=== PATIENT | male | born 1955 | race African-American/Black ===

== ENCOUNTER 2018-12-25 10:06 | Emergency (ER) | payer MEDICARE, MEDICAID ==
--- OUTSIDE RECORDS SUMMARY | 2018-12-25 10:15 | XMS REPORT | Continuity of Care Document ---
:1955 External Reference #:[id number] Author Name Yarelis Wesley Care Team Providers Name Role Phone Gerardo Tran III, MD Primary Care Physician Unavailable Payers Type Date Identification Numbers Payment Provider Subscriber Policy Number: [id number] Medicare Mansoor Lynch Julio César PayID: [id number] [address] [place] [address] Policy Number: [id number] Medicaid Mansoor Angela Group Name: 1 1 [address] PayID: [id number] [place] [address] Advance Directives Description No Information Available Problems Date Description Provider Status Onset: 12/13/2011 Essential hypertension Gerardo Tran M.D. Active Onset: 12/13/2011 Depressive disorder Gerardo Tran M.D. Active Onset: 12/13/2011 Benign localized hyperplasia of Gerardo Tran M.D. Active prostate Onset: 12/13/2011 Coronary arteriosclerosis Gerardo Tran M.D. Active Onset: 12/13/2011 Sleep apnea Gerardo Tran M.D. Active Onset: 01/09/2012 Pure hypercholesterolemia Gerardo Tran M.D. Active Onset: 06/08/2015 Osteoarthritis of knee Ivette Roca M.D. Active Onset: 06/08/2015 Current tear of medial cartilage Ivette Roca M.D. Active AND/OR meniscus of knee Onset: 08/30/2017 Localized, primary osteoarthritis Ivette Roca M.D. Active Onset: 08/30/2017 Localized, primary osteoarthritis of Ivette Roca M.D. Active the shoulder region Onset: 08/30/2017 Disorder of shoulder Ivette Roca M.D. Active Family History Date Family Member(s) Problem(s) Comments Father due to Alzheimer's () - he wandered off, Disease fell, broke his hip, amd from ? complications a few days after surgery. age 79. Mother due to Alzheimer's () - age 92 Disease First Sister due to Alcohol () - in her 50s Related Social History Type Date Description Comments Sex Unknown Marital Status Lives With Occupation Currently Working Works Part-time Smokeless Tobacco Never Used Smokeless Tobacco ETOH Use Occasionally consumes Couple times a week alcohol ETOH Use Using Cocaine couple times a week over past month as of 01/2017 Tobacco Use Start: Unknown Patient is a current max 3/4-1ppd. Began smoker, smokes every day age 16 Smoking Status Reviewed: 12/04/18 Patient is a current max 3/4-1ppd. Began smoker, smokes every day age 16 Exercise Exercises sporadically walks daily to get Type/Frequency around Allergies, Adverse Reactions, Alerts Description No Known Drug Allergies Medications Medication Date Status Form Strength Qnty SIG Indications Ordering Provider Accu-Check Shannan 12/04 Active Misc 50uni pt. to Gerardo Walsh Chem Strips ts test blood [place], sugar 3 M.D. times weekly or as directed Accu-Chek 12/04 Active Misc 50uni use with Gerardo Walsh Softclix Lancets ts blood [place], glucose M.D. testing Amlodipine 10/10 Active Tablets 5mg 90tab 1 by mouth I10 Gerardo Walsh Besylate s every day Ava Tran Voltaren 10/25 Active Gel 1% 400gm apply 2 M17.0 Ivette grams to jeremy Roca M.D. area twice daily as needed Cpap Mask And 01/20 Active Device cpap G47.30 Gerardo Walsh Supplies supplies - sebastian Tran M.D. cushion, tubing, filters, machine recheck for sleep apnea dx 780.57 Pravastatin 01/09 Active Tablets 40mg 90tab 1 tablet Sunil Sodium /2011 s daily at [place] [facility], bedtime Ava,FACP Tamsulosin HCL Active Capsules 0.4mg 90cap 1 po qd Unknown s Cpap Active qhs Unknown Fluticasone Active Suspension 50mcg/Act 48uni Place 1 Gerardo E. ts [facility] [place], Each M.D. Nostril Once Daily as Needed Aspirin Adult Low Active Chewtabs 81mg 30uni 1 po qd Unknown Strength ts Dextran/Hypromell Active 0.3% 2 gtts Unknown ose both eyes Sodium Chloride Active 0.65% nasal Unknown spray Lisinopril-Hydroc Active Tablets 20-12.5mg 1 by mouth Unknown hlorothiazide every day Carboxymethylcell Active 0.5% 1 gtt qid Unknown ulose Na both eyes Pantoprazole Active Tablets DR 1 by mouth Unknown Sodium every day Hemorrhoidal-HC Active Ointment once daily Naproxen Active Tablets 500mg 1 by mouth Unknown twice a day as needed pain Colon Cleanser 02/13 Hx as directed - 03/29 Cholecalciferol 02/13 Hx 1000Unit daily - 03/29 Carboxymethylcell 02/13 Hx 0.5% instill 1 Unknown ulose drop both - eyes four 03/29 times day Nicotine 02/13 Hx Patches 7mg/24HR 1 patch a 24HR day and - wear it 03/29 for 14 hours Naproxen 02/03 Hx Tablets 500mg 30tab 1 tablet M25.521 Ivette s with food Abelino, - by mouth M.D. 11/27 twice a day Nicotine 12/29 Hx Patches 7mg/24HR 1 patch Gerardo E. Transdermal 24HR transderma [place], System Step 3 - l 24 hours M.D. 02/10 Milk Of Magnesia 12/29 Hx Suspension 3000m 30 Gerardo E. l milliliter [place], - s oral M.D. 10/09 other day as needed for constipati on. Vitamin D-3 12/29 Hx Capsules 1000Unit 90cap 1 by mouth Gerardo E. /2016 s every day Ana Tran M.D. 10/09 Naprosyn 06/08 Hx Tablets 500mg 40tab take 1 s tablet Abelino, - twice a M.D. 12/28 day for weeks Tramadol HCL 06/08 Hx Tablets 50mg 80tab 1 tablet s by mouth Abelino, - every 6 M.D. 12/29 hours needed pain Voltaren 03/12 Hx Gel 1% 100gm apply 2 grams Abelino, - directly M.D. 12/28 to painful area(s) up to 4 times daily Percocet 04/30 Hx Tablets 5-325mg 60tab 1-2 by s mouth Abelino, - every 4 to M.D. 01/20 6 hours needed pain Colace 04/30 Hx Capsules 100mg 60cap 1 by mouth s twice a Abelino, - day prn M.D. 12/28 Paroxetine HCL 10/07 Hx Tablets 40mg 1/2 po qd Hayley Ana Tran M.D. 12/29 Paroxetine HCL Hx Tablets 20mg 90tab 1 po qd Gerardo E s Ana Tran M.D. 10/07 Lisinopril Hx Tablets 20mg 30tab 1 po qd Unknown / s - 10/07 Ibuprofen Hx Tablets 600mg 90tab three Ivette s times a Abelino, - day as M.D. 06/08 Erythromycin Hx Gel 2% 120gm apply thin Unknown film twice - daily 01/[address] 81mg 30tab 1 po qd Unknown Coated Adult Low /0000 s Strength - 11/04 Vitamin D Hx Capsules 1000Unit 30cap po qd Unknown /0000 s - 02/10 Androgel Pump Hx Gel (1.62%) 1Bott 2 Unknown /0000 le actuations - qam 11/04 Lisinopril/Hydroc Hx Tablets 20-12.5mg 1 po qd Unknown hlorothiazide /0000 - 12/29 Co Q10 00 Hx Capsules 100mg 1 po qd Unknown /0000 - 01/20 Centrum Ultra Hx Tablets 1 po qd Unknown Mens / - 01/20 Trazodone HCL 00 Hx Tablets 50mg 1 /2 Unknown /0000 tablet at - bedtime as 03/29 Amoxicillin Hx Capsules 500mg Take One Unknown / Capsule - Every 8 Menthol/M-Salycyl Hx muscle Unknown ate / pain - 11/27 Ibuprofen Hx Tablets 600mg 1 by mouth Unknown /0000 twice - times a 11/27 day needed Hydroxyzine Hx Capsules 25mg 1 in the Unknown Pamoate / morning - and 2 at 11/27 night for anxiety Bupropion HCL ER Hx Tablets ER take 1 Unknown (SR) /0000 12HR tablet by - mouth 11/27 morning Bisacodyl Ec Hx Tablets DR 5mg 1 by mouth Unknown /0000 every day - as needed 08/13 Biotene Hx Solution 2 sprays Unknown Moisturizing /0000 tid Mouth Hope - 11/27 Lisinopril Hx Tablets 20mg 1 by mouth Unknown /0000 every day - 03/29 Paroxetine HCL Hx Tablets 40mg 1 by mouth Unknown /0000 every day - 03/29 Medications Administered in Office Medication Date Status Form Strength Qnty SIG Indications Ordering Provider Celestone 3 mg Administered Injection Ivette and 3mg 018 Ava Roca Depomedrol Administered Injection Ivette 40MG 017 Ava Roca Depomedrol Administered Injection Ivette 40MG Laron Roca M.D. Depomedrol Administered Injection Ivette 40MG 017 Ava Roca Depomedrol Administered Injection Ivette 40MG 017 Ava Roca Celestone 3 mg Administered Injection Ivette and 3mg 017 Ava Roca Depomedrol Administered Injection Ivette 80MG 015 Ava Roca Depomedrol Administered Injection Ivette 80MG 015 Ava Roca Influenza Administered Injection Unknown Virus Vaccine 015 Depomedrol Administered Injection Ivette 80MG 014 Ava Roca Immunizations CPT Code Status Date Vaccine Reaction Lot # [id number] Given 10/10/2018 Influenza Virus Vaccine, No immediate reaction [id number] Quadrivalent, Split, noted. Preservative Free 30125 Given 09/13/2016 Influ Virus Vaccine, Quadrivalent, Split Virus, [place] [address] Given 12/15/2014 Zoster (Zostavax) 22477 Given 11/13/2013 Pneumonia Vaccine 36693 Given 10/07/2013 Flu Vaccine Split Virus [id number] Preservative Free For Indiv 3Yr Older 26887 Given 12/13/2011 Tdap - [id number] Tetanus/Diptheria/Acellular Pertussis Vital Signs Date Vital Result Comment 12/04/2018 9:10am Height 68.5 inches 5'8.50" Weight 256.00 lb Heart Rate 82 /min BP Systolic 133 mmHg home device/right arm BP Diastolic 80 mmHg home device/right arm BP Systolic Sitting 130 mmHg manual/right arm BP Diastolic Sitting 80 mmHg manual/right arm O2 % BldC Oximetry 95 % BMI (Body Mass Index) 38.4 kg/m2 10/10/2018 9:44am Height 68.5 inches 5'8.50" Weight 257.00 lb Heart Rate 66 /min BP Systolic Sitting 140 mmHg BP Diastolic Sitting 88 mmHg O2 % BldC Oximetry 96 % BMI (Body Mass Index) 38.5 kg/m2 03/07/2018 9:25am Height 68 inches 5'8" Weight 250.00 lb BP Systolic 146 mmHg BP Diastolic 86 mmHg Body Temperature 97.8 F BMI (Body Mass Index) 38.0 kg/m2 11/28/2017 1:09pm Weight 244.00 lb Heart Rate 79 /min BP Systolic Sitting 132 mmHg BP Diastolic Sitting 95 mmHg Body Temperature 97.6 F O2 % BldC Oximetry 97 % 10/25/2017 8:49am Height 68 inches 5'8" Weight 255.00 lb BP Systolic 144 mmHg BP Diastolic 90 mmHg Body Temperature 97.6 F BMI (Body Mass Index) 38.8 kg/m2 08/30/2017 11:46am Height 68 inches 5'8" Weight 256.00 lb Heart Rate 72 /min BP Systolic 130 mmHg BP Diastolic 76 mmHg Respiratory Rate 20 /min Body Temperature 96.8 F Pain Level 5 BMI (Body Mass Index) 38.9 kg/m2 05/12/2017 9:12am Height 68 inches 5'8" Weight 258.00 lb Heart Rate 80 /min BP Systolic Sitting 132 mmHg BP Diastolic Sitting 84 mmHg Respiratory Rate 30 /min O2 % BldC Oximetry 97 % room air BMI (Body Mass Index) 39.2 kg/m2 03/30/2017 8:54am Height 68 inches 5'8" Weight 262.00 lb Heart Rate 76 /min BP Systolic Sitting 128 mmHg BP Diastolic Sitting 86 mmHg Respiratory Rate 16 /min O2 % BldC Oximetry 95 % BMI (Body Mass Index) 39.8 kg/m2 03/17/2017 8:54am Height 68 inches 5'8" Weight 266.00 lb Heart Rate 69 /min BP Systolic 148 mmHg BP Diastolic 91 mmHg Body Temperature 97.4 F Pain Level 0 BMI (Body Mass Index) 40.4 kg/m2 02/14/2017 9:02am Height 68 inches 5'8" Weight 259.00 lb Heart Rate 72 /min BP Systolic Sitting 146 mmHg BP Diastolic Sitting 84 mmHg Respiratory Rate 14 /min O2 % BldC Oximetry 97 % BMI (Body Mass Index) 39.4 kg/m2 Neck Circumference in inches 18 02/10/2017 10:38am Height 68.5 inches 5'8.50" Weight 260.00 lb Heart Rate 86 /min BP Systolic Sitting 142 mmHg BP Diastolic Sitting 84 mmHg Respiratory Rate 15 /min Body Temperature 98.0 F O2 % BldC Oximetry 98 % BMI (Body Mass Index) 39.0 kg/m2 02/03/2017 10:15am Height 68.5 inches 5'8.50" Weight 238.00 lb Heart Rate 71 /min BP Systolic 136 mmHg BP Diastolic 78 mmHg Respiratory Rate 16 /min Body Temperature 97.1 F BMI (Body Mass Index) 35.7 kg/m2 12/29/2016 11:23am Height 68.5 inches 5'8.50" Weight 258.38 lb Heart Rate 90 /min BP Systolic 130 mmHg BP Diastolic 82 mmHg Body Temperature 97.9 F O2 % BldC Oximetry 96 % BMI (Body Mass Index) 38.7 kg/m2 06/08/2015 10:18am Height 68.5 inches 5'8.50" Weight 256.00 lb Heart Rate 71 /min BP Systolic 151 mmHg BP Diastolic 84 mmHg Pain Level 2 BMI (Body Mass Index) 38.4 kg/m2 03/12/2015 11:53am Height 68.5 inches 5'8.50" Weight 256.00 lb Heart Rate 78 /min BP Systolic 136 mmHg BP Diastolic 82 mmHg Pain Level 2 BMI (Body Mass Index) 38.4 kg/m2 02/12/2015 2:17pm Height 68.5 inches 5'8.50" Weight 256.00 lb Pain Level 2 BMI (Body Mass Index) 38.4 kg/m2 01/29/2015 2:33pm Height 68.5 inches 5'8.50" Weight 256.00 lb Pain Level 6 BMI (Body Mass Index) 38.4 kg/m2 01/20/2015 2:09pm Height 68.5 inches 5'8.50" Weight 256.50 lb Heart Rate 71 /min BP Systolic Sitting 130 mmHg BP Diastolic Sitting 82 mmHg O2 % BldC Oximetry 95 % BMI (Body Mass Index) 38.4 kg/m2 05/19/2014 9:48am Height 68 inches 5'8" Weight 257.00 lb Heart Rate 75 /min BP Systolic 143 mmHg BP Diastolic 91 mmHg Body Temperature 98.2 F BMI (Body Mass Index) 39.1 kg/m2 04/30/2014 1:57pm Height 68 inches 5'8" Weight 257.00 lb Heart Rate 98 /min BP Systolic 106 mmHg BP Diastolic 75 mmHg BMI (Body Mass Index) 39.1 kg/m2 04/08/2014 2:17pm Height 68.5 inches 5'8.50" Weight 253.75 lb Heart Rate 78 /min BP Systolic Sitting 124 mmHg BP Diastolic Sitting 76 mmHg Body Temperature 98.1 F BMI (Body Mass Index) 38.0 kg/m2 03/21/2014 8:56am Height 68 inches 5'8" Weight 250.00 lb Heart Rate 76 /min BP Systolic 143 mmHg BP Diastolic 92 mmHg BMI (Body Mass Index) 38.0 kg/m2 01/10/2014 10:14am Weight 256.00 lb Heart Rate 86 /min BP Systolic Sitting 128 mmHg BP Diastolic Sitting 85 mmHg Body Temperature 98.1 F O2 % BldC Oximetry 97 % 11/04/2013 11:46am Height 68.25 inches 5'8.25" Weight 254.75 lb Heart Rate 96 /min BP Systolic Sitting 120 mmHg BP Diastolic Sitting 68 mmHg BMI (Body Mass Index) 38.4 kg/m2 10/07/2013 2:42pm Height 68 inches 5'8" Weight 255.00 lb Heart Rate 76 /min BP Systolic Sitting 138 mmHg BP Diastolic Sitting 82 mmHg BMI (Body Mass Index) 38.8 kg/m2 01/09/2012 3:29pm Height 68.5 inches 5'8.50" Weight 236.50 lb Heart Rate 77 /min BP Systolic Sitting 131 mmHg BP Diastolic Sitting 79 mmHg BMI (Body Mass Index) 35.4 kg/m2 12/13/2011 2:29pm Height 69.50 inches 5'9.50" Weight 237.00 lb Heart Rate 72 /min BP Systolic Sitting 134 mmHg l BP Diastolic Sitting 82 mmHg l BMI (Body Mass Index) 34.5 kg/m2 Results Test Date Facility Test Result H/L Range Note Laboratory test 10/30/2018 [facility] Hemoglobin A1c 6.4 % High 4.0-5.[address] (Glyco HGB) [place] [address] [phone] Comp Metabolic 10/30/2018 [facility] Sodium 139 mmol/L N 135- [address] [place] [address] [phone] Potassium 4.5 mmol/L N 3.5-5.0 Chloride 108 mmol/L N 101-111 Co2 Carbon Dioxide 25 mmol/L N 22-32 Anion Gap 6 mmol/L N 2-11 Glucose 119 mg/dL High 70-100 Blood Urea Nitrogen 22 mg/dL N 6-24 Creatinine 1.14 mg/dL N 0.67-1.17 BUN/Creatinine Ratio 19.3 N 8-20 Calcium 9.2 mg/dL N 8.6-10.3 Total Protein 7.0 g/dL N 6.4-8.9 Albumin 4.3 g/dL N 3.2-5.2 Globulin 2.7 g/dL N 2-4 Albumin/Globulin Ratio 1.6 N 1-3 Total Bilirubin 0.50 mg/dL N 0.2-1.0 Alkaline Phosphatase 37 U/L N 34-104 Alt 30 U/L N 7-52 Ast 27 U/L N 13-39 Egfr Non- 64.7 >60 Egfr 78.3 >60 2 Hepatitis C Antibody 10/30/2018 [facility] HCV Index < 0.[address] [place] [address] [phone] Hepatitis C Antibody Nonreactive Nonreactive Laboratory 10/30/2018 [facility] Hepatitis B Dna Undetected Undetected 3 test finding [address] Quantitative IU/[place] [address] [phone] Lipid Profile 06/19/2018 [facility] Triglycerides 101 mg/dL 4 (Trig/Chol/HD [address] L) [place] [address] [phone] Cholesterol 169 mg/dL 5 HDL Cholesterol 37.9 mg/dL 6 LDL Cholesterol 111 mg/dL 7 Comp Metabolic Panel 06/19/2018 [facility] Sodium 139 mmol/L N 135-[address] [place] [address] [phone] Potassium 3.9 mmol/L N 3.5-5.0 Chloride 108 mmol/L N 101-111 Co2 Carbon Dioxide 20 mmol/L Low 22-32 Anion Gap 11 mmol/L N 2-11 Calcium 9.6 mg/dL N 8.6-10.3 Albumin 4.3 g/dL N 3.2-5.2 Total Bilirubin 0.70 mg/dL N 0.2-1.0 Glucose 117 mg/dL High 70-100 Blood Urea Nitrogen 14 mg/dL N 6-24 Creatinine 1.18 mg/dL High 0.67-1.17 BUN/Creatinine Ratio 11.9 N 8-20 Total Protein 7.0 g/dL N 6.4-8.9 Globulin 2.7 g/dL N 2-4 Albumin/Globulin Ratio 1.6 N 1-3 Alkaline Phosphatase 34 U/L N 34-104 Alt 55 U/L High 7-52 Ast 41 U/L High 13-39 Egfr Non- 62.3 >60 Egfr 75.4 >60 8 Laboratory test 11/28/2017 [facility] Magnesium 1.9 mg/dL N 1.9-2.[address] [place] [address] [phone] Vitamin B12 And 11/28/2017 [facility] Vitamin B12 654 pg/mL N 180-914 9 Folate Serum [address] [place] [address] [phone] Folic Acid (Folate) > 20.00 ng/mL >3.99 Lipid Profile 01/27/2017 [facility] Triglycerides 178 mg/dL N 10 (Trig/Chol/HDL) [address] [place] [address] [phone] Cholesterol 186 mg/dL N 11 HDL Cholesterol 34.0 mg/dL N 12 LDL Cholesterol 116 mg/dL N 13 Comp Metabolic Panel 01/26/2017 [facility] Sodium 137 mmol/L N 133-[address] [place] [address] [phone] Potassium 4.3 mmol/L N 3.5-5.0 Chloride 106 mmol/L N 101-111 Co2 Carbon Dioxide 25 mmol/L N 22-32 Anion Gap 6 mmol/L N 2-11 Glucose 100 mg/dL N 70-100 Blood Urea Nitrogen 16 mg/dL N 6-24 Creatinine 1.43 mg/dL High 0.67-1.17 BUN/Creatinine Ratio 11.2 N 8-20 Calcium 9.4 mg/dL N 8.6-10.3 Total Protein 7.0 g/dL N 6.4-8.9 Albumin 4.2 g/dL N 3.2-5.2 Globulin 2.8 g/dL N 2-4 Albumin/Globulin Ratio 1.5 N 1-3 Total Bilirubin 0.50 mg/dL N 0.2-1.0 Alkaline Phosphatase 35 U/L N 34-104 Alt 38 U/L N 7-52 Ast 33 U/L N 13-39 Egfr Non- 50.1 N >60 Egfr 64.4 N >60 14 CBC Auto 06/23/2016 [facility] White Blood 13.0 10^3/uL High 3.5-10.[address] [place] [address] [phone] Red Blood Count 5.43 10^6/uL High 4.0-5.4 Hemoglobin 16.2 g/dL N 14.0-18.0 Hematocrit 48 % N 42-52 Mean Corpuscular Volume 89 fL N 80-94 Mean Corpuscular Hemoglobin 30 pg N 27-31 Mean Corpuscular HGB Conc 34 g/dL N 31-36 Red Cell Distribution Width 14 % N 10.5-15 Platelet Count 261 10^3/uL N 150-450 Mean Platelet Volume 8 um3 N 7.4-10.4 Abs Neutrophils 9.9 10^3/uL High 1.5-7.7 Abs Lymphocytes 2.0 10^3/uL N 1.0-4.8 Abs Monocytes 0.9 10^3/uL High 0-0.8 Abs Eosinophils 0.1 10^3/uL N 0-0.6 Abs Basophils 0.1 10^3/uL N 0-0.2 Abs Nucleated RBC 0.02 10^3/uL N Granulocyte % 76.3 % N 38-83 Lymphocyte % 15.5 % Low 25-47 Monocyte % 6.7 % N 1-9 Eosinophil % 0.7 % N 0-6 Basophil % 0.8 % N 0-2 Nucleated Red Blood Cells % 0.2 N Urinalysis Profile 06/23/2016 [facility] Urine Color Yellow N [address] [place] [address] [phone] Urine Appearance Clear N Urine Specific [place] 1.021 N 1.010-1.030 Urine pH 5.0 N 5-9 Urine Urobilinogen Negative N Negative Urine Ketones Negative N Negative Urine Protein Negative N Negative Urine Leukocytes Negative N Negative Urine Blood Negative N Negative Urine Nitrite Negative N Negative Urine Bilirubin Negative N Negative Urine Glucose Negative N Negative Urine 06/23/2016 [facility] Amphetamine Ur Presumptive Abnormal None 15 Drug SCR [address] Screen Posi <SEE Detect ED & [place] [address] NOTE> [facility] [phone] Barbiturates Urine Screen None Detected N None Detect Benzodiazepine Urine Screen None Detected N None Detect Urine Cannabinoids Screen None Detected N None Detect Urine Cocaine Screen Presumptive Posi <SEE NOTE> Abnormal None Detect 16 Urine Opiates Screen None Detected N None Detect Urine Phencyclidine Screen None Detected N None Detect 17 Comp Metabolic Panel 06/23/2016 [facility] Sodium 136 mmol/L N 133-[address] [place] [address] [phone] Potassium 3.1 mmol/L Low 3.5-5.0 Chloride 102 mmol/L N 101-111 Co2 Carbon Dioxide 24 mmol/L N 22-32 Anion Gap 10 mmol/L N 2-11 Glucose 136 mg/dL High 70-100 Blood Urea Nitrogen 13 mg/dL N 6-24 Creatinine 1.41 mg/dL High 0.67-1.17 BUN/Creatinine Ratio 9.2 N 8-20 Calcium 9.3 mg/dL N 8.6-10.3 Total Protein 7.6 g/dL N 6.4-8.9 Albumin 4.2 g/dL N 3.2-5.2 Globulin 3.4 g/dL N 2-4 Albumin/Globulin Ratio 1.2 N 1-3 Total Bilirubin 0.90 mg/dL N 0.2-1.0 Alkaline Phosphatase 36 U/L N 34-104 Alt 38 U/L N 7-52 Ast 28 U/L N 13-39 Egfr Non- 51.1 N >60 Egfr 65.7 N >60 18 Laboratory test 06/23/2016 [facility] Acetaminophen < 15 g/mL N [address] [place] [address] [phone] Alcohol < 10 mg/dL N <10 Salicylate < 2.50 mg/dL N <30 TSH (Thyroid Stim Horm) 1.27 mcIU/mL N 0.34-5.60 CBC Auto 01/05/2016 [facility] White Blood 15.8 10^3/uL High 3.5-10.[address] [place] [address] [phone] Red Blood Count 5.05 10^6/uL N 4.0-5.4 Hemoglobin 15.2 g/dL N 14.0-18.0 Hematocrit 45 % N 42-52 Mean Corpuscular Volume 90 fL N 80-94 Mean Corpuscular Hemoglobin 30 pg N 27-31 Mean Corpuscular HGB Conc 34 g/dL N 31-36 Red Cell Distribution Width 13 % N 10.5-15 Platelet Count 265 10^3/uL N 150-450 Mean Platelet Volume 8 um3 N 7.4-10.4 Abs Neutrophils 13.0 10^3/uL High 1.5-7.7 Abs Lymphocytes 1.6 10^3/uL N 1.0-4.8 Abs Monocytes 1.1 10^3/uL High 0-0.8 Abs Eosinophils 0 10^3/uL N 0-0.6 Abs Basophils 0.1 10^3/uL N 0-0.2 Abs Nucleated RBC 0.02 10^3/uL N Granulocyte % 82.3 % N 38-83 Lymphocyte % 10.0 % Low 25-47 Monocyte % 6.9 % N 1-9 Eosinophil % 0.2 % N 0-6 Basophil % 0.6 % N 0-2 Nucleated Red Blood Cells % 0.2 N Comp Metabolic Panel 01/05/2016 [facility] Sodium 133 mmol/L N 133-145 [address] [place] [address] [phone] Potassium 3.5 mmol/L N 3.5-5.0 Chloride 99 mmol/L Low 101-111 Co2 Carbon Dioxide 25 mmol/L N 22-32 Anion Gap 9 mmol/L N 2-11 Glucose 136 mg/dL High 70-100 Blood Urea Nitrogen 10 mg/dL N 6-24 Creatinine 1.33 mg/dL High 0.67-1.17 BUN/Creatinine Ratio 7.5 Low 8-20 Calcium 9.5 mg/dL N 8.6-10.3 Total Protein 7.7 g/dL N 6.4-8.9 Albumin 4.5 g/dL N 3.2-5.2 Globulin 3.2 g/dL N 2-4 Albumin/Globulin Ratio 1.4 N 1-3 Total Bilirubin 0.90 mg/dL N 0.2-1.0 Alkaline Phosphatase 38 U/L N 34-104 Alt 74 U/L High 7-52 Ast 72 U/L High 13-39 Egfr Non- 54.7 N >60 Egfr 70.3 N >60 20 Laboratory test 01/05/2016 [facility] Acetaminophen < 15 g/mL N 21 finding [address] [place] [address] [phone] Alcohol < 10 mg/dL N <10 Salicylate < 2.50 mg/dL N <30 TSH (Thyroid Stim Horm) 0.90 ?IU/mL N 0.34-5.60 Urinalysis Profile 01/05/2016 [facility] Urine Color Yellow N [address] [place] [address] [phone] Urine Appearance Clear N Urine Specific [place] 1.018 N 1.010-1.030 Urine pH 5.0 N 5-9 Urine Urobilinogen Negative N Negative Urine Ketones Negative N Negative Urine Protein Negative N Negative Urine Leukocytes Negative N Negative Urine Blood Negative N Negative Urine Nitrite Negative N Negative Urine Bilirubin Negative N Negative Urine Glucose Negative N Negative Urine Drug 01/05/2016 [facility] Amphetamine Ur None Detected N None Detect SCR ED & [address] [place] [address] [phone] Barbiturates Urine Screen None Detected N None Detect Benzodiazepine Urine Screen None Detected N None Detect Urine Cannabinoids Screen None Detected N None Detect Urine Cocaine Screen Presumptive Posi <SEE NOTE> Abnormal None Detect 22 Urine Opiates Screen None Detected N None Detect Urine Phencyclidine Screen None Detected N None Detect 23 Laboratory test 06/25/2015 [facility] Troponin-I 0.00 N <0.03 [address] (TnI) ng/[place] [address] [phone] CBC Auto Diff 06/25/2015 [facility] White Blood 15.1 High 4.8- 10.[address] Count 10^3/[place] [address] [phone] Red Blood Count 4.90 10^6/uL N 4.0-5.4 Hemoglobin 15.4 g/dL N 14.0-18.0 Hematocrit 46 % N 42-52 Mean Corpuscular Volume 93 fL N 80-94 Mean Corpuscular Hemoglobin 31 pg N 27-31 Mean Corpuscular HGB Conc 34 g/dL N 31-36 Red Cell Distribution Width 14 % N 10.5-15 Platelet Count 231 10^3/uL N 150-450 Mean Platelet Volume 8 um3 N 7.4-10.4 Abs Neutrophils 11.9 10^3/uL High 1.5-7.7 Abs Lymphocytes 1.9 10^3/uL N 1.0-4.8 Abs Monocytes 1.0 10^3/uL High 0-0.8 Abs Eosinophils 0.1 10^3/uL N 0-0.6 Abs Basophils 0.1 10^3/uL N 0-0.2 Abs Nucleated RBC 0.01 10^3/uL N Granulocyte % 78.9 % N 38-83 Lymphocyte % 12.8 % Low 25-47 Monocyte % 7.0 % N 1-9 Eosinophil % 0.8 % N 0-6 Basophil % 0.5 % N 0-2 Nucleated Red Blood Cells % 0 N Laboratory test 06/25/2015 [facility] Lactic Acid 1.3 mmol/L N 0.5-2.2 finding [address] [place] [address] [phone] Acetaminophen < 15 g/mL N 25 Alcohol < 10 mg/dL N <10 26 Salicylate < 2.50 mg/dL N <30 27 Comp Metabolic Panel 06/25/2015 [facility] Sodium 137 mmol/L N 133-145 [address] [place] [address] [phone] Potassium 3.5 mmol/L N 3.5-5.0 Chloride 104 mmol/L N 101-111 Co2 Carbon Dioxide 25 mmol/L N 22-32 Anion Gap 8 mmol/L N 2-11 Glucose 130 mg/dL High 70-100 Blood Urea Nitrogen 10 mg/dL N 6-24 Creatinine 1.30 mg/dL High 0.67-1.17 BUN/Creatinine Ratio 7.7 Low 8-20 Calcium 9.2 mg/dL N 8.6-10.3 Total Protein 7.3 g/dL N 6.4-8.9 Albumin 4.4 g/dL N 3.2-5.2 Globulin 2.9 g/dL N 2-4 Albumin/Globulin Ratio 1.5 N 1-3 Total Bilirubin 0.80 mg/dL N 0.2-1.0 Alkaline Phosphatase 38 U/L N 34-104 Alt 36 U/L N 7-52 Ast 29 U/L N 13-39 Egfr Non- 56.3 N >60 Egfr 72.4 N >60 28 Laboratory test 06/25/2015 [facility] Troponin-I (TnI) 0.01 ng/ mL N <0.03 29 finding [address] [place] [address] [phone] TSH (Thyroid Stim Horm) 2.12 ?IU/mL N 0.34-5.60 30 Urinalysis Profile 06/25/2015 [facility] Urine Color Yellow N [address] [place] [address] [phone] Urine Appearance Cloudy N Urine Specific [place] 1.023 N 1.010-1.030 Urine pH 6.0 N 5-9 Urine Urobilinogen Positive Abnormal Negative Urine Ketones Negative N Negative Urine Protein Negative N Negative Urine Leukocytes Negative N Negative Urine Blood 1+ Abnormal Negative Urine Nitrite Negative N Negative Urine Bilirubin Negative N Negative Urine Glucose Negative N Negative Urine White Blood Cell Trace(0-5/hpf) N Absent Urine Red Blood Cell 2+(6-10/hpf) Abnormal Absent Urine Bacteria Absent N Absent Urine Squamous Epithelial Cell Present Abnormal Absent Urine Drug 06/25/2015 [facility] Amphetamine Ur None Detected N None Detect SCR ED & [address] [place] [address] [phone] Barbiturates Urine Screen None Detected N None Detect Benzodiazepine Urine Screen None Detected N None Detect Urine Cannabinoids Screen None Detected N None Detect Urine Cocaine Screen Presumptive Posi <SEE NOTE> Abnormal None Detect 31 Urine Opiates Screen None Detected N None Detect Urine Phencyclidine Screen None Detected N None Detect 32 Laboratory test 01/20/2015 [facility] In House Hemoglobin A1c 6.0 5-7 finding Lipid Profile 12/26/2014 [facility] Triglycerides 122 mg/dL N 33, 34 (Trig/Chol/HDL) [address] [place] [address] [phone] Cholesterol 127 mg/dL N 35 HDL Cholesterol 25.3 mg/dL N 36 LDL Cholesterol 77 mg/dL N 37 Comp Metabolic Panel 12/26/2014 [facility] Sodium 135 mmol/L N 133-145 [address] [place] [address] [phone] Potassium 4.2 mmol/L N 3.5-5.0 Chloride 105 mmol/L N 101-111 Co2 Carbon Dioxide 25 mmol/L N 22-32 Anion Gap 5 mmol/L N 2-11 Glucose 110 mg/dL High 70-100 Blood Urea Nitrogen 20 mg/dL N 6-24 Creatinine 1.52 mg/dL High 0.67-1.17 BUN/Creatinine Ratio 13.2 N 8-20 Calcium 9.4 mg/dL N 8.6-10.3 Total Protein 7.0 g/dL N 6.4-8.9 Albumin 4.5 g/dL N 3.2-5.2 Globulin 2.5 g/dL N 2-4 Albumin/Globulin Ratio 1.8 N 1-3 Total Bilirubin 0.50 mg/dL N 0.2-1.0 Alkaline Phosphatase 28 U/L Low 34-104 Alt 27 U/L N 7-52 Ast 30 U/L N 13-39 Egfr Non- 47.0 N >60 Egfr 60.5 N >60 38 Comp Metabolic Panel 12/18/2013 [facility] Sodium 137 mmol/L 133-[address] [place] [address] [phone] Potassium 3.9 mmol/L 3.5-5.0 Chloride 107 mmol/L 101-111 Co2 Carbon Dioxide 24.0 mmol/L 22-32 Anion Gap 6.0 mmol/L 2-11 Glucose 128 mg/dL High 70-100 Blood Urea Nitrogen 13 mg/dL 6-24 Creatinine 1.40 mg/dL 0.50-1.40 BUN/Creatinine Ratio 9.3 8-20 Calcium 9.5 mg/dL 8.1-9.9 Total Protein 7.6 g/dL 6.2-8.1 Albumin 4.3 g/dL 3.6-5.4 Globulin 3.3 g/dL 2-4 Albumin/Globulin Ratio 1.3 1-3 Total Bilirubin 0.7 mg/dL 0.4-1.5 Alkaline Phosphatase 34 U/L 30-110 Alt 43 U/L 14-54 Ast 39 U/L 12-42 Egfr Non- 51.9 >60 Egfr 66.7 >60 39 CBC Auto Diff 12/18/2013 [facility] White Blood 8.1 10^3/uL 4.8-10.[address] [place] [address] [phone] Red Blood Count 4.89 10^6/uL 4.0-5.4 Hemoglobin 14.6 g/dL 14.0-18.0 Hematocrit 44 % 42-52 Mean Corpuscular Volume 91 fL 80-94 Mean Corpuscular Hemoglobin 30 pg 27-31 Mean Corpuscular HGB Conc 33 g/dL 31-36 Red Cell Distribution Width 14 % 10.5-15 Platelet Count 245 10^3/uL 150-450 Mean Platelet Volume 9 um3 7.4-10.4 Abs Neutrophils 5.8 10^3/uL 1.5-7.7 Abs Lymphocytes 1.5 10^3/uL 1.0-4.8 Abs Monocytes 0.6 10^3/uL 0-0.8 Abs Eosinophils 0.1 10^3/uL 0-0.6 Abs Basophils 0 10^3/uL 0-0.2 Abs Nucleated RBC 0.01 10^3/uL Granulocyte % 72.6 % 38-83 Lymphocyte % 18.7 % Low 25-47 Monocyte % 7.4 % 1-9 Eosinophil % 0.8 % 0-6 Basophil % 0.5 % 0-2 Nucleated Red Blood Cells % 0.1 Laboratory test 12/18/2013 [facility] Troponin I 0 ng/mL 0- 0.06 40 finding [address] [place] [address] [phone] D Dimer Quantitative < 200 ng/mL Less Than 230 41 Lipid Profile 11/08/2013 [facility] Triglycerides 101 mg/dL 40-200 (Trig/Chol/HDL) [address] [place] [address] [phone] Cholesterol 115 mg/dL Less than 200 HDL Cholesterol 28 mg/dL Low 40-60 42 Cholesterol/HDL Ratio 4.1 Average 1-4.44 LDL Cholesterol 66.8 Less Than 100 43 Comp Metabolic Panel 11/08/2013 [facility] Sodium 135 mmol/L 133-145 [address] [place] [address] [phone] Potassium 3.9 mmol/L 3.5-5.0 Chloride 102 mmol/L 101-111 Co2 Carbon Dioxide 24.0 mmol/L 22-32 Anion Gap 9.0 mmol/L 2-11 Glucose 108 mg/dL High 70-100 Blood Urea Nitrogen 15 mg/dL 6-24 Creatinine 1.20 mg/dL 0.50-1.40 BUN/Creatinine Ratio 12.5 8-20 Calcium 9.0 mg/dL 8.1-9.9 Total Protein 6.6 g/dL 6.2-8.1 Albumin 3.8 g/dL 3.6-5.4 Globulin 2.8 g/dL 2-4 Albumin/Globulin Ratio 1.4 1-3 Total Bilirubin 0.7 mg/dL 0.4-1.5 Alkaline Phosphatase 31 U/L 30-110 Alt 44 U/L 14-54 Ast 40 U/L 12-42 Egfr Non- 62.0 >60 Egfr 79.7 >60 44 CBC With 11/08/2013 [facility] White Blood 5.9 10^3/uL 4.8- 10.8 Manual Diff [address] [facility] [place] [address] [phone] Red Blood Count 4.82 10^6/uL 4.0-5.4 Hemoglobin 15.1 g/dL 14.0-18.0 Hematocrit 43 % 42-52 Mean Corpuscular Volume 90 fL 80-94 Mean Corpuscular Hemoglobin 31 pg 27-31 Mean Corpuscular HGB Conc 35 g/dL 31-36 Red Cell Distribution Width 14 % 10.5-15 Platelet Count 216 10^3/uL 150-450 Mean Platelet Volume 9 um3 7.4-10.4 Abs Neutrophils 3.4 10^3/uL 1.5-7.7 Abs Lymphocytes 1.4 10^3/uL 1.0-4.8 Abs Monocytes 1.1 10^3/uL High 0-0.8 Abs Eosinophils 0.1 10^3/uL 0-0.6 Abs Basophils 0 10^3/uL 0-0.2 Abs Nucleated RBC 0 10^3/uL Neutrophil % 60 % 38-83 Band % 2 % 0-8 Lymphocytes % 26 % 25-47 Monocytes % 9 % 0-13 Eosinophils % 2 % 0-6 Reactive Lymph % 1 % 0-6 RBC Morphology Normal Normal Manual Differential 12/14/2011 [facility] Polysegmented 68 % 38-[address] [place] [address] [phone] Lymphocyte 22 % Low 25-47 Monocyte 9 % 0-13 Eosinophil 1 % 0-6 Absolute Neutrophil Count 5.9 RBC Morphology NORMAL CBC Auto Diff 12/14/2011 [facility] White Blood 8.8 CUMM 4.8- 10.[address] [place] [address] [phone] Red Cell Count 4.62 CUMM 4.6-6.2 Hemoglobin 14.9 g/dL 14.0-18.0 Hematocrit 42 % 42-52 Mean Corpuscular Volume 91 um3 80-94 Mean Corpuscular Hemoglob 32 pg High 27-31 Mean Corpuscular HGB Cone 35 g/dL 32-36 Redcell Distribution WDTH 14 % 10.5-15 Platelet Count 203 CUMM 150-450 Mean Platelet Volume 9.3 um3 7.4-10.4 45 Lipid Profile 12/14/2011 [facility] Triglyceride 64 mg/dL 40- 200 (Trig/Chol/HDL) [address] [place] [address] [phone] Cholesterol 206 mg/dL High Less Than 200 46 High Density Lipoprotein 33 mg/dL Low 40-60 47 Cholesterol/HDL Ratio 6.24 AVERAGE High 1-4.97 Low Density Lipoprotein 160 mg/dL High Less Than 100 48 Laboratory test 12/14/2011 [facility] TSH 1.74 MIU/ML 0.34- 5.60 finding [address] [place] [address] [phone] PSA 0.41 NG/ML 0-4 49 Comp Metabolic Panel 12/14/2011 [facility] Sodium 138 mmol/L 135-145 [address] [place] [address] [phone] Potassium 4.0 mmol/L 3.5-5.0 Chloride 106 mmol/L 101-111 Co2 (Carbon Dioxide) 25.0 mmol/L 22-32 Anion Gap 7.0 mmol/L 2-11 50 Glucose 101 mg/dL High 70-100 BUN 15 mg/dL 6-24 Creatinine 1.3 mg/dL 0.50-1.40 One Over Creatinine 0.76 BUN/Creatinine Ratio 11.5 8-20 Calcium 8.7 mg/dL 8.1-9.9 Total Protein 6.7 GM/DL 6.2-8.1 Albumin 4.1 GM/DL 3.6-5.4 Globulin 2.6 GM/DL 2-4 Albumin/Globulin Ratio 1.6 1-3 Bilirubin Total 0.6 mg/dL 0.4-1.5 51 Alkaline Phosphatase 30 U/L Low 39-117 Alt (SGPT) 35 U/L 17-63 Ast (Sgot) 35 U/L 12-42 eGFR Non- 56.9 > 60 eGFR 73.2 > 60 52 1 Therapeutic target for the treatment of diabetes mellitus patients is <7% HBA1C, and in selective patients <6.0%. Please refer to [place] Diabetes Association diabetic care guidelines for further information. 2 Because ethnic data is not always readily available, this report includes an eGFR for both -Americans and non- Americans. The National Kidney Disease Education Program (NKDEP) does not endorse the use of the MDRD equation for patients that are not between the ages of 18 and 70, are , have extremes of body size, muscle mass, or nutritional status, or are non- or non-. According to the National Kidney Foundation, irrespective of diagnosis, the stage of the disease is based on the level of kidney function: Stage Description GFR(mL/min/1.73 m(2)) 1 Kidney damage with normal or decreased GFR 90 2 Kidney damage with mild decrease in GFR 60-89 3 Moderate decrease in GFR 30-59 4 Severe decrease in GFR 15-29 5 Kidney failure <15 (or dialysis) 3 Result in log IU/mL is Undetected. ADDITIONAL INFORMATION The quantification range of this assay is 10 to 1,000,000,000 IU/mL (1.00 log to 9.00 log IU/mL). Testing was performed using the [place] HBV test ([employer] with the [place] [employer] System. Test Performed by: [facility] [address] [place] [address] 4 Desirable: <150 Borderline High: 150-199 High: 200-499 Very High: >500 5 Desirable: <200 Borderline High: 200-239 High: >239 6 Low: <40 Desirable: 40-60 High: >60 7 Desirable: <100 Near Optimal: 100-129 Borderline High: 130-159 High: 160-189 Very High: >189 8 Because ethnic data is not always readily available, this report includes an eGFR for both -Americans and non- Americans. The National Kidney Disease Education Program (NKDEP) does not endorse the use of the MDRD equation for patients that are not between the ages of 18 and 70, are , have extremes of body size, muscle mass, or nutritional status, or are non- or non-. According to the National Kidney Foundation, irrespective of diagnosis, the stage of the disease is based on the level of kidney function: Stage Description GFR(mL/min/1.73 m(2)) 1 Kidney damage with normal or decreased GFR 90 2 Kidney damage with mild decrease in GFR 60-89 3 Moderate decrease in GFR 30-59 4 Severe decrease in GFR 15-29 5 Kidney failure <15 (or dialysis) 9 Normal Range 180 to 914 Indeterminate Range 145 to 180 Deficient Range <145 10 Desirable <150 Borderline high 150-199 High 200-499 Very High >500 11 Desirable <200 Borderline high 200-239 High >239 12 Low <40 Desirable: 40-60 High: >60 13 Desirable: <100 mg/dL Near Optimal: 100-129 mg/dL Borderline High: 130-159 mg/dL High: 160-189 mg/dL Very High: >189 mg/dL 14 Because ethnic data is not always readily available, this report includes an eGFR for both -Americans and non- Americans. The National Kidney Disease Education Program (NKDEP) does not endorse the use of the MDRD equation for patients that are not between the ages of 18 and 70, are , have extremes of body size, muscle mass, or nutritional status, or are non- or non-. According to the National Kidney Foundation, irrespective of diagnosis, the stage of the disease is based on the level of kidney function: Stage Description GFR(mL/min/1.73 m(2)) 1 Kidney damage with normal or decreased GFR 90 2 Kidney damage with mild decrease in GFR 60-89 3 Moderate decrease in GFR 30-59 4 Severe decrease in GFR 15-29 5 Kidney failure <15 (or dialysis) 15 Presumptive Positive Presumptive positive results are unconfirmed. 16 Presumptive Positive Presumptive positive results are unconfirmed. 17 The urine specimen was tested at the listed cutoffs: Drug class test level (ng/mL) Amphetamines 500 Barbiturates 200 Benzodiazepine metabolites 200 Cocaine metabolites 150 Cannabinoids 50 Opiates 300 Pcp 25 Specimen was received without chain of custody. Results should be used for medical purposes only. 18 Because ethnic data is not always readily available, this report includes an eGFR for both -Americans and non- Americans. The National Kidney Disease Education Program (NKDEP) does not endorse the use of the MDRD equation for patients that are not between the ages of 18 and 70, are , have extremes of body size, muscle mass, or nutritional status, or are non- or non-. According to the National Kidney Foundation, irrespective of diagnosis, the stage of the disease is based on the level of kidney function: Stage Description GFR(mL/min/1.73 m(2)) 1 Kidney damage with normal or decreased GFR 90 2 Kidney damage with mild decrease in GFR 60-89 3 Moderate decrease in GFR 30-59 4 Severe decrease in GFR 15-29 5 Kidney failure <15 (or dialysis) 19 Therapeutic concentration: <50 ug/mL Toxic concentration: >120 ug/mL 20 Because ethnic data is not always readily available, this report includes an eGFR for both -Americans and non- Americans. The National Kidney Disease Education Program (NKDEP) does not endorse the use of the MDRD equation for patients that are not between the ages of 18 and 70, are , have extremes of body size, muscle mass, or nutritional status, or are non- or non-. According to the National Kidney Foundation, irrespective of diagnosis, the stage of the disease is based on the level of kidney function: Stage Description GFR(mL/min/1.73 m(2)) 1 Kidney damage with normal or decreased GFR 90 2 Kidney damage with mild decrease in GFR 60-89 3 Moderate decrease in GFR 30-59 4 Severe decrease in GFR 15-29 5 Kidney failure <15 (or dialysis) 21 Therapeutic concentration: <50 ug/mL Toxic concentration: >120 ug/mL 22 Presumptive Positive 23 The urine specimen was tested at the listed cutoffs: Drug class test level (ng/mL) Amphetamines 500 Barbituates 200 Benzodiazepine metabolites 200 Cocaine metabolites 150 Cannabinoids 50 Opiates 300 Pcp 25 This is a screening procedure. Positive results are not confirmed. Specimen was received without chain of custody. Results should be used for medical purposes only. 24 Reference Range and Interpretation: TnI (ng/mL) Interpretation Less Than 0.03 ng/mL Not supportive of diagnosis of VT 0.03 - 0.50 ng/mL Indeterminate: suggest serial studies if clinically indicated. Greater than 0.5 ng/mL Consistent with diagnosis of VT 25 Therapeutic concentration: <50 ug/mL Toxic concentration: >120 ug/mL 26 Comment: s 27 Comment: s 28 Because ethnic data is not always readily available, this report includes an eGFR for both -Americans and non- Americans. The National Kidney Disease Education Program (NKDEP) does not endorse the use of the MDRD equation for patients that are not between the ages of 18 and 70, are , have extremes of body size, muscle mass, or nutritional status, or are non- or non-. According to the National Kidney Foundation, irrespective of diagnosis, the stage of the disease is based on the level of kidney function: Stage Description GFR(mL/min/1.73 m(2)) 1 Kidney damage with normal or decreased GFR 90 2 Kidney damage with mild decrease in GFR 60-89 3 Moderate decrease in GFR 30-59 4 Severe decrease in GFR 15-29 5 Kidney failure <15 (or dialysis) 29 Reference Range and Interpretation: TnI (ng/mL) Interpretation Less Than 0.03 ng/mL Not supportive of diagnosis of VT 0.03 - 0.50 ng/mL Indeterminate: suggest serial studies if clinically indicated. Greater than 0.5 ng/mL Consistent with diagnosis of VT 30 Comment: s 31 Presumptive Positive 32 The urine specimen was tested at the listed cutoffs: Drug class test level (ng/mL) Amphetamines 500 Barbituates 200 Benzodiazepine metabolites 200 Cocaine metabolites 150 Cannabinoids 50 Opiates 300 Pcp 25 This is a screening procedure. Positive results are not confirmed. Specimen was received without chain of custody. Results should be used for medical purposes only. 33 FASTING 10 HOUR 34 Desirable <150 Borderline high 150-199 High 200-499 Very High >500 35 Desirable <200 Borderline high 200-239 High >239 36 Low <40 Desirable: 40-60 High: >60 37 Desirable <100 Near Optimal 100-129 Borderline high 130-159 High 160-189 Very High >189 38 Because ethnic data is not always readily available, this report includes an eGFR for both -Americans and non- Americans. The National Kidney Disease Education Program (NKDEP) does not endorse the use of the MDRD equation for patients that are not between the ages of 18 and 70, are , have extremes of body size, muscle mass, or nutritional status, or are non- or non-. According to the National Kidney Foundation, irrespective of diagnosis, the stage of the disease is based on the level of kidney function: Stage Description GFR(mL/min/1.73 m(2)) 1 Kidney damage with normal or decreased GFR 90 2 Kidney damage with mild decrease in GFR 60-89 3 Moderate decrease in GFR 30-59 4 Severe decrease in GFR 15-29 5 Kidney failure <15 (or dialysis) 39 Because ethnic data is not always readily available, this report includes an eGFR for both -Americans and non- Americans. The National Kidney Disease Education Program (NKDEP) does not endorse the use of the MDRD equation for patients that are not between the ages of 18 and 70, are , have extremes of body size, muscle mass, or nutritional status, or are non- or non-. According to the National Kidney Foundation, irrespective of diagnosis, the stage of the disease is based on the level of kidney function: Stage Description GFR(mL/min/1.73 m(2)) 1 Kidney damage with normal or decreased GFR 90 2 Kidney damage with mild decrease in GFR 60-89 3 Moderate decrease in GFR 30-59 4 Severe decrease in GFR 15-29 5 Kidney failure <15 (or dialysis) 40 Reference Range and Interpretation: TnI (ng/mL) Interpretation Less Than 0.06 ng/mL Not supportive of diagnosis of VT 0.06 - 0.50 ng/mL Indeterminate: suggest serial studies if clinically indicated. Greater than 0.5 ng/mL Consistent with diagnosis of VT 41 Please note: The following may produce a false positive D Dimer test: - Rheumatoid factor greater than 60 IU/ml - Plasma hemoglobin greater than 0.05 gm/dl - Bilirubin greater than 50 mg/dl - Lipids greater than 1000 mg/dl - FDP greater than 20 ug/ml 42 HDL Interpretation: Undesirable: High Risk: Less than 40 mg/dL Desirable: Low Risk: Greater than 60 mg/dL 43 LDL Interpretation: Low Risk Optimal Level: LDL Less than 100 mg/dL Near or Above Optimal: LDL 100-129 mg/dL Borderline High Risk: LDL 130-159 mg/dL High Risk: LDL 160-189 mg/dL Very High Risk: LDL Greater than 189 mg/dL 44 Because ethnic data is not always readily available, this report includes an eGFR for both -Americans and non- Americans. The National Kidney Disease Education Program (NKDEP) does not endorse the use of the MDRD equation for patients that are not between the ages of 18 and 70, are , have extremes of body size, muscle mass, or nutritional status, or are non- or non-. According to the National Kidney Foundation, irrespective of diagnosis, the stage of the disease is based on the level of kidney function: Stage Description GFR(mL/min/1.73 m(2)) 1 Kidney damage with normal or decreased GFR 90 2 Kidney damage with mild decrease in GFR 60-89 3 Moderate decrease in GFR 30-59 4 Severe decrease in GFR 15-29 5 Kidney failure <15 (or dialysis) 45 Lymphopenia % 46 CHOLESTEROL INTERPRETATION: Desirable: Less than 200 MG/DL Borderline-High Risk: 200-239 MG/DL High-Risk: 240 MG/DL and over 47 HDL INTERPRETATION: Undesirable: High Risk: Less than 40 MG/DL Desirable: Low Risk: Greater than 60 MG/DL 48 LDL INTERPRETATION: Low Risk Optimal Level: LDL Less than 100 MG/DL Near or Above Optimal: LDL 100-129 MG/DL Borderline High Risk: LDL 130-159 MG/DL High Risk: LDL 160-189 MG/DL Very High Risk: LDL Greater than 189 MG/DL 49 * SERUM LEVELS OF PSA MEASURED USING THE [employer] ACCESS HYBRITECH IMMUNOASSAY SHOULD NOT BE INTERPRETED ABSOLUTE EVIDENCE OF THE PRESENCE OR ABSENCE OF DISEASE. THE PSA VALUE SHOULD BE USED IN CONJUNCTION WITH OTHER PERTINENT CLINICAL DIAGNOSTIC PROCEDURES. A PSA value in the range of 0.1 to 0.6 ng/ml is indeterminate if being used as an indicator of recurrent or residual disease. . The values obtained with different assay methods of kits cannot be used interchangeably. 50 Anion gap measurement may be of limited value in the presence of any alkalosis, especially in a combined acid base disorder. . 51 A metabolite of Naproxen, O-desmethylnaproxen, has been shown to interfere with the [place] method for measuring total bilirubin. Samples from patients who have taken Naproxen have shown spurious elevation in total bilirubin levels. 52 Because ethnic data is not always readily available, this report includes an eGFR for both -Americans and non- Americans. The National Kidney Disease Education Program (NKDEP) does not endorse the use of the MDRD equation for patients that are not between the ages of 18 and 70, are , have extremes of body size, muscle mass, or nutritional status, or are non- or non-. According to the National Kidney Foundation, irrespective of diagnosis, the stage of the disease is based on the level of kidney function: Stage Description GFR(mL/min/1.73 m(2)) 1 Kidney damage with normal or decreased GFR 90 2 Kidney damage with mild decrease in GFR 60-89 3 Moderate decrease in GFR 30-59 4 Severe decrease in GFR 15-29 5 Kidney failure <15 (or dialysis) Procedures Date Code Description Status 03/07/2018 Inject Tendon Sheath Or Ligament Aponeurosis Eg Plantar Completed Fascia 10/25/2017 Inject/Drain Joint/Bursa Major W/O US Completed 10/25/2017 Inject/Drain Joint/Bursa Intermediate W/O US Completed 08/30/2017 Inject/Drain Joint/Bursa Major W/O US Completed 08/30/2017 Inject/Drain Joint/Bursa Major W/O US Completed 03/09/2017 69348 Diffusing Capacity Completed 03/09/2017 91919 Plethysmography Determination Lung Volumes & Per Airway Completed Resist 03/09/2017 57176 Pulmonary Stress Test Simple Completed 03/09/2017 61916 Pulmonary Function><Bronchodil Completed 02/22/2017 67500 Polysomnography Sleep Staging 4+ Parameters W/Cpap Completed 02/03/201732399 Injection Single Tendon Origin/Insertion Completed 03/13/2016 [id number] Colonoscopy Completed 06/08/2015 Inject/Drain Joint/Bursa Major W/O US Completed 01/29/2015 Inject/Drain Joint/Bursa Major W/O US Completed 05/06/2014 79620 Arthroscopy,Knee,Meniscectomy Medial Or Lateral Completed 05/06/2014 14753 Arthroscopy,Knee,Meniscectomy Medial Or Lateral Completed 04/08/2014 77345 EKG Tracing & Interpretation Completed 03/21/2014 90121 Xray Knee 3 Views Completed 03/21/2014 25381 Rad Exam; Knee, Ap&L Completed 03/21/2014 59289 Rad Shoulder Comp, Min. 2 Views Completed 03/21/201406801 Inject/Drain Joint/Bursa Major W/O US Completed 01/17/2012 00308 ECHO Stress Test Incl Perf Contiuous ekg Monitoring Completed W/Phys Superv 01/09/2012 16527 EKG Tracing & Interpretation Completed Encounters Type Date Location Provider Dx Diagnosis Office Visit 03/07/2018 Orthopedic Ivette Roca M77.11 Lateral 9:30a [facility] epicondylitis, right elbow Office Visit 11/28/2017 [facility] Internal Gerardo Walsh K30 Functional 1:00p Hoda Tran M.D. dyspepsia [place] R25.2 Cramp and spasm Office Visit 10/25/2017 8:45a Orthopedic Ivette M17.0 Bilateral primary Services Of Ava Roca osteoarthritis of C.M.A. knee M77.11 Lateral epicondylitis, right elbow Office Visit 08/30/2017 11:15a Orthopedic Services Ivette Roca, M25.562 Pain in left Of C.M.A. M.D. knee M25.462 Effusion, left knee M17.12 Unilateral primary osteoarthritis, left knee M19.012 Primary osteoarthritis, left shoulder M75.42 Impingement syndrome of left shoulder M25.512 Pain in left shoulder Office Visit 05/12/2017 9:30a Pulmonology And Sameera G47.33 Obstructive sleep Sleep Services Of MD Tegan apnea (adult) [facility] (pediatric) E66.01 Morbid (severe) obesity due to excess calories Z68.39 Body mass index (BMI) 39.0-39.9, adult F17.210 Nicotine dependence, cigarettes, uncomplicated Office Visit 03/30/2017 9:15a Pul[facility]ology And Sameera G47.33 Obstructive sleep Sleep [facility] Tegan apnea (adult) [facility] (pediatric) F17.210 Nicotine dependence, cigarettes, uncomplicated Office Visit 03/17/2017 9:15a Orthopedic Ivette M77.11 Lateral [facility] A[facility]oca epicondylitis, right C.M.A. elbow M25.521 Pain in right elbow Office Visit 02/14/2017 8:45a Pulmonology [facility] G47.33 Obstructive sleep Sleep Services Of [facility] Tegan apnea (adult) [facility] (pediatric) F17.210 Nicotine dependence, cigarettes, uncomplicated F14.10 Cocaine abuse, uncomplicated R06.83 Snoring R06.00 Dyspnea, unspecified Office Visit 02/03/2017 10:30a [facility]opedic Services Ivette Roca, M25.521 Pain in right Of C.M.A. M.D. elbow M77.11 Lateral epicondylitis, right elbow Office Visit 12/29/2016 11:20a [facility] Internal Gerardo Walsh M79.672 Pain in left Hoda Tran M.D. foot [facility] G47.30 Sleep apnea, unspecified Office Visit 06/08/2015 10:30a Orthopedic Ivette 715.96 Osteoarthrosis Services Of Ava Roca Unspec Genlzd Or C.M.A. Localized Lower Leg 719.46 Pain Joint Lower Leg 836.0 Dislocation Knee Tear Of Medial Cartilage Or Meniscus Curren 715.11 Osteoarthrosis Localized Prim Shoulder Region Office Visit 03/12/2015 11:45a Orthopedic Ivette 836.0 Dislocation Knee Services Of Ava Roca Tear Of Medial C.M.A. Cartilage Or Meniscus Curren Office Visit 02/12/2015 2:30p Orthopedic Ivette 719.46 Pain Joint Lower Leg Services Of Ava Roca C.M.A. Office Visit 01/29/2015 2:30p Orthopedic Ivette 715.96 Osteoarthrosis Services Of Ava Roca Unspec Genlzd Or C.M.A. Localized Lower Leg Office Visit 01/20/2015 2:00p [facility] Era Walsh V70.0 Examination General Hoda Tran M.D. Medical Routine AT [facility] 780.57 Unspecified Sleep Apnea 401.9 Hypertension Unspec 272.0 Hypercholesterolemia Pure 414.01 Coronary Atherosclerosis [place] 311 Depressive Disorder Not Elsewhere Spec 719.46 Pain Joint Lower Leg 599.70 Hematuria, Unspecified 790.21 Impaired Fasting Glucose V76.51 Special Screening For Malignant Neoplasms Colon Office Visit 04/08/2014 2:20p [place] Internal Gerardo Walsh V72.81 Examination Hoda Tran M.D. [facility] Cardiovascular 836.0 Dislocation Knee Tear Of Medial Cartilage Or Meniscus Curren 401.9 Hypertension Unspec 272.0 Hypercholesterolemia Pure 414.01 Coronary Atherosclerosis [place] 311 Depressive Disorder Not Elsewhere Spec 780.57 Unspecified Sleep Apnea Office Visit 03/21/2014 8:45a Orthopedic Ivette Abelino, 836.0 Dislocation Knee Services Of Ava Tear Of Medial C.M.A. 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 Unspec [place] 401.9 Hypertension Unspec 272.0 Hypercholesterolemia Pure Office Visit 11/04/2013 11:40a [facility] Internal Gerardo Walsh 719.46 Pain Joint Hoda Tran M.D. Lower Leg [place] 401.9 Hypertension Unspec 272.0 Hypercholesterolemia Pure Office Visit 10/07/2013 2:40p [facility] Internal Gerardo Walsh V70.0 Examination Hoda Tran M.D. [facility] Routine AT [facility] 401.9 Hypertension Unspec 414.01 Coronary Atherosclerosis [place] 311 Depressive Disorder Not Elsewhere Spec 780.57 Unspecified Sleep Apnea 272.0 Hypercholesterolemia Pure V76.51 Special Screening For Malignant Neoplasms Colon 600.20 Benign Localized Hyperplasia Prostate W/O Urinary Obstruct V04.81 Need For Prophylactic Vaccination & Inoculation/Influenza 553.1 Hernia Umbilical Office Visit 01/17/2012 [place] Sarmiento S. 401.9 Hypertension 3:45p Cardiology Ava Mcduffie Unspec 414.01 Coronary Atherosclerosis [place] 272.4 Hyperlipidemia Other Unspec Office Visit 01/09/2012 [facility] Era Walsh 272.0 Hypercholesterolemia Pure 3:40p Hoda Tran M.D. [place] 401.9 Hypertension Unspec 414.01 Coronary Atherosclerosis [place] Office Visit 12/13/2011 2:40p [facility] Internal Gerardo Walsh 401.9 Hypertension Unspec Hoda Tran M.D. [place] 311 Depressive Disorder Not Elsewhere Spec 729.5 Pain In Limb 600.20 Benign Localized Hyperplasia Prostate W/O Urinary Obstruct 414.01 Coronary Atherosclerosis [place] 780.57 Unspecified Sleep Apnea V06.1 Vfqxabnlzs-Fvonerd-Dyuxeeho Combined (DTaP) Plan of Treatment Future Appointment(s):06/04/2019 9:00 am - Gerardo Tran M.D. at [facility] Medicine [facility]10/10/2018 - Gerardo Tran M.D.Z00.00 Encounter for general adult medical examination without abnoZ23 Encounter for wbinofyhhnjyX77 Essential (primary) hypertensionNew Medication:Amlodipine Besylate 5 mg - 1 by mouth every dayFollow up:early Nov with home BP readings and ulrapjnA49.00 Pure hypercholesterolemia, bgnweslvoalE08.30 Sleep apnea, fiuhdmsucxiV34.9 Major depressive disorder, single episode, unspecifiedComments: Follows with psych; off drug Rx at brbptrtX42.01 Impaired fasting glucoseComments:FBS 117 in June; diet Rx onlt. Recheck sugar, A1c. [facility] referral entered per pt's request for diet, lifestyle eval/RxReferral:[facility] [employer] [facility], HqqmbmapdghnM11.59 Encounter for screening for other viral diseasesComments:Due for a Hep C screen; pt reports having Hep B in the , but no Rx then and subsequent labs ok per pt. Recheck liver fxn as above , and will check Hep B viral DNAF17.210 Nicotine dependence, cigarettes, uncomplicatedComments:Discussed lung cancer screening with patient, including: False positives, which may lead to further imaging studies and additional testing.Low radiation dosing.Adherence to follow-ups.Impact of comorbidities and ability or willingness to undergo diagnosis and treatment.Importance of maintaining cigarette smoking abstinence if former smoker OR Importance of smoking cessation if current smoker.
--- NOTE | 2018-12-25 12:49 | UC ---
Respiratory Complaint HPI - HPI Summary HPI Summary: 63-year-old male presents with complaints of chest congestion with occasionally productive cough for white sputum for the past 7 days. Associated with some mild nasal congestion. States cough is progressively worsened and he is noticing rattling in his chest when he lays down at night. Patient has a history of cocaine abuse but states has been sober for the past 3 months. He is a smoker about half a pack a day. Denies fever, chills, chest pain, palpitations, shortness of breath, wheezing, abdominal pain, nausea, vomiting, or diarrhea. - History of Current Complaint Chief Complaint: UCRespiratory Stated Complaint: POSS CHEST COLD Time Seen by Provider: 12/25/18 12:12 Hx Obtained From: Patient Pain Intensity: 0 - Allergies/Home Medications Allergies/Adverse Reactions: Allergies Allergy/AdvReac Type Severity Reaction Status Date / Time apple Allergy See Comment Verified 12/25/18 10:21 Home Medications: Home Medications Amlodipine Besylate [Norvasc] 5 mg PO DAILY 12/25/18 [History Confirmed 12/25/18 ] Carboxymethylcellulos 1% OPTH* [Celluvisc 1% OPTH*] 1 drop BOTH EYES QID PRN 10/31 [History Confirmed 12/25/18] PMH/Surg Hx/FS Hx/Imm Hx Endocrine History: Dyslipidemia Cardiovascular History: Hypertension GI/ History: Gastroesophageal Reflux, Other - BPH - Surgical History Surgical History: Yes Surgery Procedure, Year, and Place: UMBILICAL HERNIA REPAIR. LT WRIST SURGERY. TESTICLE REMOVED-. CARDIAC CATH - NO STENTS. LEFT KNEE EUA - Family History Known Family History: Positive: Unknown - Social History Occupation: Unemployed Lives: With Family Alcohol Use: Occasionally Alcohol Amount: 2 drinks Substance Use Type: None Substance Use Comment - Amount & Last Used: hx cocaine use - clean for three months Smoking Status (MU): Heavy Every Day Tobacco Smoker Type: Cigarettes Amount Used/How Often: 7-8 cig/day Length of Time of Smoking/Using Tobacco: 44 YRS Have You Smoked in the Last Year: Yes Household Exposure Type: Cigarettes - Immunization History Most Recent Influenza Vaccination: 06/25 Most Recent Tetanus Shot: unknown Most Recent Pneumonia Vaccination: unsure Review of Systems All Other Systems Reviewed And Are Negative: Yes Constitutional: Negative: Fever, Chills Eyes: Negative: Drainage, Eye Redness ENT: Positive: Nasal Discharge, Sinus Congestion. Negative: Sore Throat, Ear Ache, Sinus Pain/Tenderness Respiratory: Positive: Cough. Negative: Shortness Of Breath Cardiovascular: Negative: Palpitations, Chest Pain Gastrointestinal: Negative: Abdominal Pain, Vomiting, Diarrhea, Nausea Genitourinary: Positive: Negative Musculoskeletal: Positive: Negative Neurological: Positive: Negative Physical Exam - Summary Physical Exam Summary: GENERAL APPEARANCE: Well developed, well nourished, alert and cooperative, and appears to be in no acute distress. EYES: Conjunctiva clear. No discharge. Vision is grossly intact. EARS: External auditory canals and tympanic membranes clear, hearing grossly intact. NOSE: Mild-moderate nasal congestion. THROAT: Pharynx normal. No tonsilar inflammation, swelling, exudate, or lesions. NECK: Neck supple, non-tender without lymphadenopathy. CARDIAC: Normal S1 and S2. No S3, S4 or murmurs. Rhythm is regular. There is no peripheral edema, cyanosis or pallor. Extremities are warm and well perfused. Capillary refill is less than 2 seconds. LUNGS: Fine crackles noted right lung base. No wheezing or diminished breath sounds. ABDOMEN: Positive bowel sounds. Soft, nondistended, nontender. No guarding or rebound. No masses or hepatosplenomegally. MUSKULOSKELETAL: ROM intact to all extremities. No joint erythema or tenderness. Normal muscular development. Normal gait. SKIN: Skin normal color, texture and turgor with no lesions or eruptions. Triage Information Reviewed: Yes Vital Signs: Initial Vital Signs Temp 97.5 F 12/25/18 10:15 Pulse 80 12/25/18 10:15 Resp 18 12/25/18 10:15 BP 133/89 12/25/18 10:15 Pulse Ox 97 12/25/18 10:15 Vital Signs Reviewed: Yes Diagnostic Evaluation - Laboratory O2 Sat by Pulse Oximetry: 97 - Radiology Radiology Interpretation Completed By: Radiologist Summary of Radiographic Findings: Attending Doctor: Ml Oliver ([id number]). Technician Anatomic Pathology: Johnny Hernández ([id number]). Residential Pest Control Technician: JAS ([email or web address]). Report Date: 12/25/2018 12:21:00. Report Status: Final. ======== Begin of Report Content . Patient Name: DOMINIQUE MIRANDA Medical Record#: [id number]. Ordering Physician: hSun Vazquez NP Acct.#: [id number]. : 1955 Age: 63 Sex: M Location: [facility]. Exam Date: 12/25/18 1221 ADM Status: REG ER. Order Information: CHEST PA LAT 2 VWS. Accession Number: [id number]. CPT: 19041. HISTORY: chest congestion. COMPARISONS: June 25, 2015. VIEWS: 4: Frontal dual-energy and lateral views of the chest. FINDINGS: CARDIOMEDIASTINAL SILHOUETTE: The cardiomediastinal silhouette is normal. MARGI: The margi are normal. PLEURA: The costophrenic angles are sharp. No pleural abnormalities are noted. LUNG PARENCHYMA: The lungs are clear. ABDOMEN: The upper abdomen is clear. There is no subphrenic gas. BONES AND SOFT TISSUES: Degenerative changes are noted of the spine. There is a scoliotic curvature of the spine. OTHER: None. IMPRESSION: NO ACTIVE CARDIOPULMONARY DISEASE. Respiratory Course/Dx - Course Course Of Treatment: 63-year-old male presents with complaints of chest congestion with occasionally productive cough for white sputum for the past 7 days. Associated with some mild nasal congestion. States cough is progressively worsened and he is noticing rattling in his chest when he lays down at night. Patient has a history of cocaine abuse but states has been sober for the past 3 months. He is a smoker about half a pack a day. Denies fever, chills, chest pain, palpitations, shortness of breath, wheezing, abdominal pain, nausea, vomiting, or diarrhea. Afebrile. We'll signs stable. Exam reveals an adult male in no acute distress with mild to moderate nasal congestion, fine crackles the right lung base, and occasional nonproductive cough. Chest x-ray showed no acute cardiopulmonary pathology. Considering his report of worsening symptoms and with his smoking history will treat for an acute bronchitis with doxycycline 100 mg twice a day 7 days as well as symptomatic treatment. He is to follow-up with his primary care provider in 7 days if symptoms do not improve. Anticipatory guidance and warning symptoms were reviewed with the patient. Verbalizes understanding and agrees with plan of care. - Differential Dx/Diagnosis Differential Diagnosis/HQI/PQRI: Bronchitis, CHF, Influenza, Lower Resp Infection, Sinusitis Provider Diagnosis: Acute bronchitis Discharge - Sign-Out/Discharge Documenting (check all that apply): Patient Departure All imaging exams completed and their final reports reviewed: Yes - Discharge Plan Condition: Stable Disposition: HOME Prescriptions: Doxycycline Hyclate 100 mg PO BID #14 tablet Patient Education Materials: Acute Bronchitis (ED) Referrals: Gerardo Tran MD [Primary Care Provider] - 7 Days (If no improvement in your symptoms.) Additional Instructions: Your history and exam are consistent with acute bronchitis. With the duration and worsening of symptoms as well as your smoking history I will start you on an antibiotic for the infection. Take doxycycline 1 tab twice a day for 7 days. Be aware that the cough with bronchitis may persist for 2-3 weeks even after treatment. Get plenty of rest. Drink plenty of fluids. Run a cool mist humidifer in your room at night. Take over the counter acetaminophen (Tylenol) according to directions as needed for pain or fever. Follow up with your primary care provider in 7 days if symptoms do not improve. Seek immediate medical attention in the emergency room if you have fever greater than 100.5 F despite taking acetaminophen or ibuprofen, have chest pain , difficulty breathing, or have any worsening of symptoms. - Billing Disposition and Condition Condition: STABLE Disposition: Home
[2018-12-25 13:11] VITALS: BP 134/81
== END 2018-12-25 13:05 | disposition home or self-care (01) ==
LOC: UCEAST 10:06
DX: J20.9 Acute bronchitis, unspecified (principal); F17.210 Nicotine dependence, cigarettes, uncomplicated; I10 Essential (primary) hypertension; Z79.899 Other long term (current) drug therapy
CPT/HCPCS: 71046; 99212; G0463